=== PATIENT | female | born 1985 | race Caucasian/White ===

== ENCOUNTER 2024-05-25 09:09 | Emergency (ER) | payer MEDICAID ==
[~2024-05-25] VITALS: Ht 162.6 cm; Wt 84.1 kg
[2024-05-25] MEDS ORDERED: iohexol 350MG/ML 100ml bottle IV ONE (09:24)
[2024-05-25 10:56] LABS: BASOPHILS # (AUTO) 0.1 X10'3 (0-0.2); BASOPHILS % (AUTO) 1.2 % (0-1); EOSINOPHILS # (AUTO) 0.1 X10'3 (0-0.9); EOSINOPHILS % (AUTO) 1.6 % (0-6); HEMATOCRIT 41.7 % (35.0-45.0); HEMOGLOBIN 13.9 g/dl (12.0-16.0); LYMPHOCYTES # (AUTO) 1.9 X10'3 (1.1-4.8); LYMPHOCYTES % (AUTO) 26.5 % (21-51); MEAN CORPUSCULAR HGB CONC 33.2 g/dL (33.0-36.5); MEAN CORPUSCULAR VOLUME 87.2 FL (78-98); MEAN PLATELET VOLUME 7.8 FL (7.4-10.4); MONOCYTES # (AUTO) 0.4 X10'3 (0-0.9); MONOCYTES % (AUTO) 5.5 % (2-12); NEUTROPHILS # (AUTO) 4.8 X10'3 (1.8-7.7); NEUTROPHILS % (AUTO) 65.2 % (42-75); PLATELET COUNT 334 X10'3 (140-440); RED BLOOD COUNT 4.78 X10'6 (4.20-5.60); RED CELL DISTRIBUTION WIDTH 13.1 % (11.5-14.5); WHITE BLOOD COUNT 7.4 X10'3 (4.5-11.0)
[2024-05-25 11:00] LABS: APTT 30 SECONDS (22-32); PROTHROMBIN TIME 10.4 SECONDS (9.0-12.0)
[2024-05-25 11:27] LABS: ALBUMIN 3.6 G/DL (3.4-5.0); ANION GAP 10 (8-16); BLOOD UREA NITROGEN 12 MG/DL (7-18); BUN/CREATININE RATIO 12.8 (10.0-20.0); CALCIUM 8.4 MG/DL (8.5-10.1); CHLORIDE 102 MMOL/L (99-107); CREATININE 0.94 MG/DL (0.40-0.90); GLUCOSE 85 MG/DL (70-104); SODIUM 136 MMOL/L (135-145); TOTAL CARBON DIOXIDE 23.9 MMOL/L (24-32); eCRCL 69 ML/MIN; eGFR 66 ML/MIN
[2024-05-25] MEDS: normal saline 1000ML IV soln IVB ONE (11:27)
[2024-05-25 11:34] VITALS: TEMP 98.4
[2024-05-25 11:55] LABS: C-REACTIVE PROTEIN < 0.05 MG/DL (0.0-0.5)
[2024-05-25] MEDS: ketorolac trometh 30MG/ML vial 30 MG/ML VIAL IV ONE (14:52)
[2024-05-25] MEDS: SUMAtriptan succ. 6 MG/0.5ml vial SQ ONE (14:53)
[2024-05-25] MEDS: diphenhydrAMINE 50 mg/ml inj IV ONE (14:55)
[2024-05-25] MEDS: ondansetron/PF 4mg/2ml inj IV ONE (14:57)
[2024-05-25] MEDS: dexamethasone 4mg tablet PO ONE (14:58)
[2024-05-25 15:30] VITALS: BP 143/89; PULSE 58; RESP 14; O2SAT 96
== END 2024-05-25 15:43 | disposition home or self-care (01) ==
LOC: ER 09:10
DX: G43.909 Migraine, unspecified, not intractable, without status migrainosus (principal); M54.2 Cervicalgia; R79.1 Abnormal coagulation profile; Z88.6 Allergy status to analgesic agent; Z88.5 Allergy status to narcotic agent
CPT/HCPCS: 36415; 70450; 70496; 70498; 71045; 80048; 82948; 85025; 85610; 85651; 85730; 86140; 93005; 96361; 96372; 96374; 96375; 99285; J1200; J1885; J2405; J3030; J7030; Q9967

== ENCOUNTER 2025-09-10 13:59 | Emergency (ER) | payer MEDICAID ==
[~2025-09-10] VITALS: Ht 162.6 cm; Wt 69.8 kg
[2025-09-10 14:04] VITALS: BP 140/97; PULSE 92; RESP 18; TEMP 98.2; O2SAT 100
--- NOTE | 2025-09-10 14:45 | Physician Documentation ---
History of Present Illness ~ Chief Complaint: Abscess Stated Complaint: L LEG INFECTION Time Seen by MD: 14:31 OK to notify your PCP?: Yes Primary Medical Doctor: NONE Source: patient Mode of Arrival: POV Exam Limitations: no limitations HPI This is a 40-year-old female who comes in complaining of a tender red area in the left inner leg. She states she noticed this yesterday. She states she was cleaning and a trailer in his isn't sure if she was bit by a spider. That has the areas painful. She flor a line around the yesterday and now the redness is spreading past the line she droop. She denies fever or chills. There was no discharge from the wound has a of yet. Tetanus Within 5 Years: No Medication Reconciliation Allergies: Coded Allergies: acetaminophen (Unverified Adverse Reaction, Unknown, VOMITING, 09/10/25) hydrocodone (Unverified Adverse Reaction, Unknown, VOMITING, 09/10/25) Scheduled Cephalexin*Monohydrate* (Keflex*), 1 CAP PO Q6H Sulfamethoxazole/Trimethoprim (Bactrim Ds Tablet), 1 TAB PO Q12H Past Medical History Past Medical History: Migraine Past Surgical History: noncontributory Alcohol Use: None Drug Use: none Physical Exam Vital Signs: Temperature: 98.2, Source: Temporal, Heart Rate: 92, Respiratory Rate: 18, BP: 140/97, Pulse Oximetry: 100, Weight: 69.800 Oxygen Flow Rate: 0 Pulse Oximetry Reflects: adequate oxygenation General Appearance: alert, WD/WN, no apparent distress Skin To inspection of the left lower extremity the patient has a round silver dollar sized patch of erythema with a slight induration. There is a central pustule with a firmness beneath. No fluctuance. No ascending lymphangitis. No expressible discharge as of yet. It is warm and tender to palpation. Progress Results/Orders Results/Orders Completed Orders - MOSHE MENON Ceftriaxone Im Kit W/Lidocaine (Rocephin (09/10/25 14:40) Medications Received in ER Medications (Trade) Dose Ordered Sig/Carina Route PRN Reason Start Time Stop Time Status Last Admin Dose Admin (Rocephin 1GM IM kit (w/lidocaine diluent)) 1,000 mg ONCE ONCE IM 09/10/25 14:40 09/10/25 14:41 DC 09/10/25 14:49 1,000 MG Vital Signs 09/10/25 14:04 Temp 98.2 Pulse 92 Resp 18 B/P (MAP) 140/97 Pulse Ox 100 O2 Flow Rate 0 Medical Decision Making Additional information obtaine: N/A Findings I believe with the patient's area of erythematous probably early abscess. That has began yesterday and in his not ready to be opened and drained. I am going to place the patient on Bactrim DS to be taken twice a day for 10 days and Keflex 500 mg be taken 4 times a day for 10 days. She started out with a shot of Rocephin 1 g IM here. She is to apply warm compresses and if it does come to a head and needs to be drained she can return to the ER. Differential Dx:Considerations: Include: Abscess, Cellulitis, Other Additional Comment That has cellulitis. Insect bite. Early cutaneous abscess. Departure Disposition: 01 HOME / SELF CARE / HOMELESS Impression: Primary Impression: Cellulitis Condition: Stable Discharge Instructions: Cellulitis, Adult, [id number] Additional Instructions: Take the medications as prescribed, ibuprofen for pain and warm compresses frequently. If the wound comes to a head and needs to be drained you can return to the ER. Referrals: NO PRIMARY CARE PROVIDER (PCP) Prescriptions Fluconazole* (Diflucan*) 150 Mg Tablet 1 TAB PO ONCE for 1 Day, #1 TAB Prov: MOSHE MENON 09/10/25 Cephalexin*Monohydrate* (Keflex*) 500 Mg Capsule 1 CAP PO Q6H for 10 Days, #40 CAP Prov: MOSHE MENON 09/10/25 Sulfamethoxazole/Trimethoprim (Bactrim Ds Tablet) 800 Mg-160 Mg Tablet 1 TAB PO Q12H for 10 Days, #20 TAB Prov: MOSHE MENON 09/10/25 Signature Scribe Signature: No Scribe Attestation: The note accurately reflects work and decisions made by me.Moshe SCHUMACHER 09/10/25 14:46 MOSHE MENON Sep 10, 2025 14:45
[2025-09-10] MEDS ORDERED: SULF1TAB49 PO (14:46)
[2025-09-10] MEDS ORDERED: CEPH-585 PO (14:46)
[2025-09-10] MEDS: CefTRIAXone 1000mg IM Kit (w/lidocaine diluent) IM ONE (14:49)
[2025-09-10] MEDS ORDERED: DIF150T PO (15:03)
== END 2025-09-10 14:59 | disposition home or self-care (01) ==
LOC: ER 14:01
DX: L03.116 Cellulitis of left lower limb (principal); G43.909 Migraine, unspecified, not intractable, without status migrainosus; Z88.5 Allergy status to narcotic agent
CPT/HCPCS: 96372; 99283; J0696

== ENCOUNTER 2025-09-14 15:27 | Emergency (ER) | payer MEDICAID ==
[~2025-09-14] VITALS: Ht 162.6 cm; Wt 68.9 kg
[~2025-09-14 15:27] MED LIST: CEPH-585 PO; SULF1TAB49 PO
[2025-09-14 15:37] VITALS: TEMP 97.8
--- NOTE | 2025-09-14 16:03 | Physician Documentation ---
History of Present Illness ~ Chief Complaint: Abscess Stated Complaint: LEG INFECTION Time Seen by MD: 17:05 Primary Medical Doctor: NONE HPI 40 Year old female presents to the ED with a complaint of an abscess on the right lower extremity which began to drain earlier today. He has any fevers or nausea vomiting reports having increased pain and swelling in the region. Provided a picture of purulent discharge from earlier that the in the day this is continuing to drain. Does not have a fever she was prescribed sulfa and Keflex and has remaining 5-7 days that has medication to take she is afebrile Tetanus Within 5 Years: No Medication Reconciliation Allergies: Coded Allergies: acetaminophen (Unverified Adverse Reaction, Unknown, VOMITING, 09/14/25) hydrocodone (Unverified Adverse Reaction, Unknown, VOMITING, 09/14/25) Scheduled Cephalexin*Monohydrate* (Keflex*), 1 CAP PO Q6H Sulfamethoxazole/Trimethoprim (Bactrim Ds Tablet), 1 TAB PO Q12H Discontinued Medications Fluconazole* (Diflucan*), 1 TAB PO ONCE Discontinued Reason: Auto Discontinued Past Medical History Past Medical History: Migraine Past Surgical History: noncontributory Alcohol Use: None Drug Use: none Review of Systems All Other Systems at this time: Reviewed and Negative ROS As stated above in the HPI, otherwise all systems are reviewed and negative. Physical Exam Vital Signs: Temperature: 97.8, Source: Temporal, Heart Rate: 94, Respiratory Rate: 18, BP: 123/80, Pulse Oximetry: 97, Weight: 68.900 Oxygen Flow Rate: 0 Physical Exam General: Alert, no apparent distress. Respiratory: Lungs clear, no respiratory distress. Extremities: left medial aspect calf 3cm draining with 5 cm circularl erythema Neurologic: Oriented x4. Psychiatric: Normal mood and affect. Progress Results/Orders Results/Orders Vital Signs 09/14/25 09/14/25 15:37 17:37 Temp 97.8 Pulse 94 75 Resp 18 18 B/P (MAP) 123/80 122/65 Pulse Ox 97 98 O2 Flow Rate 0 Medical Decision Making Additional information obtaine: old records Findings Patient is hemodynamically stable afebrile non tachycardic and has the appropriate oral antibiotics to cover MRSA . Nothing antibiotics to help resolve her suspected infection. I suspect after the reported release of purulent discharge today she will begin feeling better tomorrow. The wound continues to drain serous fluid. I do not see any reason to change your regimen therefore I am going to discharge her for outpatient therapy Differential Dx:Considerations: Include: Abscess, Bacteremia, Cellulitis, Erysipelas, Felon, Gas gangrene, Hidrademitis suppurativa, Impetigo, Lymphangitis, Osteromyelitis, Paronychia, Septicemia, Other Departure Disposition: HOME / SELF CARE / HOMELESS Impression: Primary Impression: Abscess Condition: Stable Discharge Instructions: Abscess, Care After Referrals: NO PRIMARY CARE PROVIDER (PCP) Signature Scribe Signature: 7 Attestation: Scribed for Espinoza Negron Scalemaker by Espinoza Fisher NP . 09/14/25 23:26 ESPINOZA NEGRON [employer] Sep 14, 2025 16:03
[2025-09-14] MEDS ORDERED: CefTRIAXone 1000mg IM Kit (w/lidocaine diluent) IM ONE (17:10)
[2025-09-14 17:37] VITALS: BP 122/65; PULSE 75; RESP 18; O2SAT 98
== END 2025-09-14 17:38 | disposition home or self-care (01) ==
LOC: ER 15:27
DX: L02.415 Cutaneous abscess of right lower limb (principal); G43.909 Migraine, unspecified, not intractable, without status migrainosus; Z88.5 Allergy status to narcotic agent; Z88.6 Allergy status to analgesic agent; Z79.899 Other long term (current) drug therapy
CPT/HCPCS: 99282